=== PATIENT | female | born 1965 | race Two or more races ===

== ENCOUNTER 2023-06-13 09:29 | Emergency (ER) | payer BC ==
[~2023-06-13] VITALS: Ht 170.2 cm; Wt 82.7 kg
--- NOTE | 2023-06-13 09:58 | NUR ---
PT DID GIVE URINE SAMPLE BUT QUANTITY INSUFFICIENT FOR UA PER [facility] IN LAB. NOTIFIED PT OF THIS AND FOR NEED FOR URINE SAMPLE. PT VERBALIZED UNDERSTANDING
[2023-06-13 10:11] LABS: BASOPHILS % (AUTO) 0.2 % (0-1); EOSINOPHILS % (AUTO) 0 % (0-6); HEMATOCRIT 37.4 % (35.0-45.0); HEMOGLOBIN 12.4 g/dl (12.0-16.0); LYMPHOCYTES # (AUTO) 1.1 X10'3 (1.1-4.8); LYMPHOCYTES % (AUTO) 12.9 % (21-51); MEAN CORPUSCULAR HEMOGLOBIN 30.4 PG (27.0-31.0); MEAN CORPUSCULAR VOLUME 92.1 FL (78-98); MEAN PLATELET VOLUME 9.3 FL (7.4-10.4); MONOCYTES # (AUTO) 0.3 X10'3 (0-0.9); NEUTROPHILS # (AUTO) 7.5 X10'3 (1.8-7.7); NEUTROPHILS % (AUTO) 83.9 % (42-75); PLATELET COUNT 176 X10'3 (140-440); RED BLOOD COUNT 4.06 X10'6 (4.20-5.60); RED CELL DISTRIBUTION WIDTH 13.6 % (11.5-14.5); WHITE BLOOD COUNT 8.9 X10'3 (4.5-11.0)
[2023-06-13 10:38] LABS: ALANINE AMINOTRANSFERASE 23 U/L (12-78); ALBUMIN 3.3 G/DL (3.4-5.0); ALBUMIN/GLOBULIN RATIO 0.9 (1.1-1.5); ALKALINE PHOSPHATASE 64 IU/L (46-116); ANION GAP 8 (8-16); ASPARTATE AMINO TRANSFERASE 26 U/L (10-37); BILIRUBIN,TOTAL 0.2 MG/DL (0.1-1.0); BLOOD UREA NITROGEN 15 MG/DL (7-18); BUN/CREATININE RATIO 13.3 (10.0-20.0); CALCIUM 8.8 MG/DL (8.5-10.1); CHLORIDE 104 MMOL/L (99-107); CREATININE 1.13 MG/DL (0.40-0.90); GLUCOSE 190 MG/DL (70-104); POTASSIUM 3.4 MMOL/L (3.5-5.1); SODIUM 135 MMOL/L (135-145); TOTAL CARBON DIOXIDE 22.6 MMOL/L (24-32); TOTAL PROTEIN 6.8 G/DL (6.4-8.2); eCRCL 51 ML/MIN; eGFR 49 ML/MIN
[2023-06-13 10:39] LABS: LIPASE 17 U/L (16-77)
[2023-06-13] MEDS ORDERED: HYDR-3965 PO (12:50)
[2023-06-13 13:00] VITALS: BP 121/84; PULSE 81; RESP 16; TEMP 97.9; O2SAT 98
== END 2023-06-13 13:02 | disposition home or self-care (01) ==
LOC: ER 09:29
DX: N20.1 Calculus of ureter (principal)
CPT/HCPCS: 36415; 80053; 83690; 85025; 99283; A4615